=== PATIENT | female | born 1970 | race Caucasian/White ===

== ENCOUNTER 2017-05-21 09:06 | Emergency (ER) | payer MEDICARE ==
[~2017-05-21] VITALS: Ht 175.3 cm; Wt 86.2 kg
[~2017-05-21 09:06] MED LIST: ACEBUTCAFT PO; CLON1 PO; CYCL10 PO; DIVA125EC PO; DIVA500ER PO; DOXY100T53 PO; FLUO20; HYDACE5 PO; LAMO100 PO; LITH300C PO; LITH300ER PO; META800 PO; NAPR500 PO; OLAN10 PO; OXYACE5T PO; PARO20 PO; QUET100; QUET25; QUET25 PO; RXCYCL10 PO; RXHYDACE PO; TOPI100; TOPI100 PO; ZOLP10 PO
[2017-05-21] MEDS ORDERED: MONDOXYNE NL100 MG PO (10:03)
[2017-05-21 11:05] LABS: Candida species (DNA Probe) Negative (NEGATIVE); G. vaginalis (DNA Probe) Positive (NEGATIVE); T. vaginalis (DNA Probe) Negative (NEGATIVE)
[2017-12-27] MEDS ORDERED: Augmentin 875-1 EACH PO (12:08)
== END 2017-05-21 10:19 | disposition home or self-care (01) ==
LOC: ER 09:06
PROVIDERS: Physician Assistant
DX: T19.2XXA Foreign body in vulva and vagina, initial encounter (principal); Z88.8 Allergy status to other drugs, medicaments and biological substances; Z88.5 Allergy status to narcotic agent; Z79.899 Other long term (current) drug therapy; F17.200 Nicotine dependence, unspecified, uncomplicated
CPT/HCPCS: 87070; 87205; 87480; 87510; 87660; 99284

== ENCOUNTER 2017-10-05 19:21 | Emergency (ER) | payer MEDICARE ==
[~2017-10-05] VITALS: Ht 177.8 cm; Wt 78.0 kg
[~2017-10-05 19:21] MED LIST changes: +MONDOXYNE NL100 MG PO
[2017-10-05] MEDS ORDERED: DIVA500EC PO (20:18)
[2017-10-05] MEDS ORDERED: CYCL10 PO (22:01)
[2017-10-05] MEDS ORDERED: Prednisone20 MG PO (22:01)
[2017-10-05] MEDS ORDERED: Percocet 5-3251 EACH PO (22:01)
== END 2017-10-05 23:02 | disposition home or self-care (01) ==
LOC: ER 19:21
DX: M54.41 Lumbago with sciatica, right side (principal); G58.8 Other specified mononeuropathies; Z88.8 Allergy status to other drugs, medicaments and biological substances; Z79.899 Other long term (current) drug therapy; Z79.2 Long term (current) use of antibiotics; F17.200 Nicotine dependence, unspecified, uncomplicated
CPT/HCPCS: 73502; 96374; 96375; 96376; 99283-25; J1100; J1885; J3010

== ENCOUNTER 2018-12-11 23:06 | Emergency (ER) | payer MEDICARE ==
[~2018-12-11] VITALS: Ht 175.3 cm; Wt 79.4 kg
[~2018-12-11 23:06] MED LIST changes: +Augmentin 875-1 EACH PO; +DIVA500EC PO; +Percocet 5-3251 EACH PO; +Prednisone20 MG PO
[2018-12-12 00:15] LABS: Source, Urine Clean Catch
[2018-12-12 00:20] LABS: BASOPHILS ABSOLUTE AUTO 0.07 K/mm3 (0.00-0.23); BASOPHILS PERCENT AUTO 1 % (0-2); EOSINOPHILS PERCENT AUTO 2 % (0-6); Hematocrit 36.3 % (33.0-51.0); Hemoglobin 11.9 g/dL (11.5-16.0); IMMATURE GRAN ABSOLUTE AUTO 0.03 K/mm3 (0.00-0.10); IMMATURE GRAN PERCENT AUTO 0 % (0-1); LYMPHOCYTES ABSOLUTE AUTO 1.46 K/mm3 (0.84-5.20); LYMPHOCYTES PERCENT AUTO 16 % (21-46); MONOCYTES ABSOLUTE AUTO 0.74 K/mm3 (0.16-1.47); MONOCYTES PERCENT AUTO 8 % (4-13); Mean Corpuscular HGB 29.3 pg (26.0-34.0); Mean Corpuscular HGB Conc 32.8 g/dL (31.5-36.5); Mean Corpuscular Volume 89 fL (80-100); NEUTROPHILS ABSOLUTE AUTO 6.62 K/mm3 (1.96-9.15); NEUTROPHILS PERCENT AUTO 73 % (41-73); Platelet Count 281 K/mm3 (150-400); RDW Coefficient Variation 13.2 % (11.7-14.2); RDW Standard Deviation 43.3 fL (35.1-46.3); Red Blood Cell Count 4.06 M/mm3 (3.80-5.20); White Blood Cell Count 9.12 K/mm3 (4.00-11.30)
[2018-12-12 00:22] LABS: Bilirubin, Urine Neg (Neg); Blood, Urine 4+ (Neg); Glucose Qualitative, Urine Neg (Neg); Ketones, Urine Neg (Neg); Leukocyte Esterase, Urine 3+ (Neg); Nitrite, Urine Neg (Neg); Protein, Urine 2+ (Neg); Specific Gravity, Urine 1.015 (1.003-1.022); Urobilinogen, Urine NORM (Normal)
[2018-12-12 00:24] LABS: Appearance, Urine Hazy (Clear); Color, Urine Yellow (P-Yellow)
[2018-12-12 00:31] LABS: Bacteria Many /hpf; Squamous Epithelial Cells Mod /hpf (Few); White Blood Cells, Urine TNTC /hpf (0-5)
[2018-12-12 00:45] LABS: Alanine Aminotransfer (ALT/SGP 28 U/L (12-78); Albumin, Blood 3.2 g/dL (3.4-5.0); Albumin/Globulin Ratio 0.8 (0.8-1.8); Alk Phos 143 U/L (50-136); Anion Gap 6 mmol/L (6-16); Aspartate Aminotrans (AST/SGOT 20 U/L (12-37); Bilirubin, Total 0.3 mg/dL (0.1-1.0); Blood Urea Nitrogen 12 mg/dL (8-24); Bun/Creatinine Ratio 14.2 (12.0-20.0); CO2, Blood 27 mmol/L (21-32); Calcium, Blood 8.3 mg/dL (8.5-10.1); Chloride, Blood 104 mmol/L (98-108); Creatinine, Blood 0.85 mg/dL (0.40-1.00); Globulin, Blood 4.1 g/dL (2.2-4.0); Glomerular Filtration Rate >60 (60-); Glucose, Blood 86 mg/dL (70-99); Sodium, Blood 137 mmol/L (136-145); Total Protein, Blood 7.3 g/dL (6.4-8.2)
[2018-12-12] MEDS ORDERED: Doxycycline Hy100 MG PO (03:39)
== END 2018-12-12 04:00 | disposition home or self-care (01) ==
LOC: ER 23:06
PROVIDERS: Emergency Medicine
DX: N39.0 Urinary tract infection, site not specified (principal); R45.4 Irritability and anger; K08.89 Other specified disorders of teeth and supporting structures; Z72.51 High risk heterosexual behavior; Z87.891 Personal history of nicotine dependence; Z88.5 Allergy status to narcotic agent; Z88.8 Allergy status to other drugs, medicaments and biological substances; Z79.899 Other long term (current) drug therapy
CPT/HCPCS: 36415; 80053; 81001; 83690; 85025; 87077; 87086; 87186; 96372; 99284-25; A9270-GY; J0696

== ENCOUNTER 2019-01-14 11:21 | Emergency (ER) | payer MEDICARE ==
[~2019-01-14] VITALS: Ht 175.3 cm; Wt 72.6 kg
[~2019-01-14 11:21] MED LIST changes: +Doxycycline Hy100 MG PO
[2019-01-14] MEDS ORDERED: Amoxicillin500 MG PO (11:56)
== END 2019-01-14 12:00 | disposition home or self-care (01) ==
LOC: ER 11:21
DX: K04.7 Periapical abscess without sinus (principal); K02.9 Dental caries, unspecified; Z87.891 Personal history of nicotine dependence; Z88.5 Allergy status to narcotic agent; Z88.8 Allergy status to other drugs, medicaments and biological substances; Z79.899 Other long term (current) drug therapy
CPT/HCPCS: 99282

== ENCOUNTER → 2019-03-01 | Outpatient (CLI) | payer OTHER ==
[~2019-03-01] MED LIST changes: +Amoxicillin500 MG PO; +RALT400 PO; +Truvada Tablet1 EACH PO
== END ==
LOC: LAB 17:22 → LAB SHORT 17:22
DX: N76.0 Acute vaginitis (principal)
CPT/HCPCS: 87070; 87147; 87205

== ENCOUNTER 2019-10-06 06:47 | Emergency (ER) | payer MEDICARE ==
[~2019-10-06] VITALS: Ht 175.3 cm; Wt 77.1 kg
[2019-10-06] MEDS ORDERED: Depakote500 MG PO (07:24)
[2019-10-06] MEDS ORDERED: ZOVIRAX800 MG PO (07:44)
== END 2019-10-06 08:33 | disposition home or self-care (01) ==
LOC: ER 06:47
DX: B02.9 Zoster without complications (principal); F43.10 Post-traumatic stress disorder, unspecified; Z79.899 Other long term (current) drug therapy; Z88.5 Allergy status to narcotic agent; Z88.8 Allergy status to other drugs, medicaments and biological substances; Z87.891 Personal history of nicotine dependence
CPT/HCPCS: 99282

== ENCOUNTER 2020-03-18 07:30 | Emergency (ER) | payer MEDICARE ==
[~2020-03-18] VITALS: Ht 177.8 cm; Wt 77.1 kg
[~2020-03-18 07:30] MED LIST changes: +Depakote500 MG PO; +ZOVIRAX800 MG PO
[2020-03-18] MEDS ORDERED: CODACE30 PO ×2 (09:28→11:03)
== END 2020-03-18 11:31 | disposition home or self-care (01) ==
LOC: ER 07:30
DX: S62.622A Displaced fracture of middle phalanx of right middle finger, initial encounter for closed fracture (principal); S00.83XA Contusion of other part of head, initial encounter; Z88.8 Allergy status to other drugs, medicaments and biological substances; Z79.899 Other long term (current) drug therapy; Z87.891 Personal history of nicotine dependence; Y04.8XXA Assault by other bodily force, initial encounter
CPT/HCPCS: 29130; 70450; 70486; 72125; 73130; 73502; 99284-25

== ENCOUNTER 2020-03-26 05:56 | Emergency (ER) | payer MEDICARE ==
[~2020-03-26] VITALS: Ht 177.8 cm; Wt 81.7 kg
[~2020-03-26 05:56] MED LIST changes: +CODACE30 PO
[2020-03-26] MEDS ORDERED: FAMC500 PO (06:24)
[2020-03-26] MEDS ORDERED: IBUP400 PO (06:24)
== END 2020-03-26 07:00 | disposition home or self-care (01) ==
LOC: ER 05:56
DX: M54.42 Lumbago with sciatica, left side (principal); F17.210 Nicotine dependence, cigarettes, uncomplicated; Z88.8 Allergy status to other drugs, medicaments and biological substances
CPT/HCPCS: 96372; 99283; A9270; J1100

== ENCOUNTER → 2020-12-01 | Outpatient (CLI) | payer SELFPAY ==
[~2020-12-01] MED LIST changes: +FAMC500 PO; +IBUP400 PO
[2020-12-01 11:58] LABS: BASOPHILS ABSOLUTE AUTO 0.02 K/mm3 (0.00-0.23); BASOPHILS PERCENT AUTO 0 % (0-2); EOSINOPHILS ABSOLUTE AUTO 0.03 K/mm3 (0.00-0.68); EOSINOPHILS PERCENT AUTO 0 % (0-6); Hemoglobin 12.2 g/dL (11.5-16.0); IMMATURE GRAN ABSOLUTE AUTO 0.04 K/mm3 (0.00-0.10); IMMATURE GRAN PERCENT AUTO 0 % (0-1); LYMPHOCYTES ABSOLUTE AUTO 1.03 K/mm3 (0.84-5.20); LYMPHOCYTES PERCENT AUTO 9 % (21-46); MONOCYTES ABSOLUTE AUTO 0.87 K/mm3 (0.16-1.47); MONOCYTES PERCENT AUTO 8 % (4-13); Mean Corpuscular HGB 29.4 pg (26.0-34.0); Mean Corpuscular HGB Conc 34.9 g/dL (31.5-36.5); Mean Corpuscular Volume 84 fL (80-100); Mean Platelet Volume 9.8 fL (9.1-12.4); NEUTROPHILS ABSOLUTE AUTO 9.48 K/mm3 (1.96-9.15); NEUTROPHILS PERCENT AUTO 83 % (41-73); Platelet Count 218 K/mm3 (150-400); RDW Coefficient Variation 13.5 % (11.7-14.2); Red Blood Cell Count 4.15 M/mm3 (3.80-5.20); White Blood Cell Count 11.47 K/mm3 (4.00-11.30)
[2020-12-01 13:26] LABS: Anion Gap 9 mmol/L (6-16); Blood Urea Nitrogen 15 mg/dL (8-24); Bun/Creatinine Ratio 15.8 (12.0-20.0); CO2, Blood 28 mmol/L (21-32); Calcium, Blood 8.8 mg/dL (8.5-10.1); Chloride, Blood 100 mmol/L (98-108); Creatinine, Blood 0.95 mg/dL (0.40-1.00); Glomerular Filtration Rate >60 (60-); Glucose, Blood 113 mg/dL (70-99); Sodium, Blood 137 mmol/L (136-145)
== END | disposition home or self-care (01) ==
LOC: LAB SHORT 11:41
PROVIDERS: Physician Assistant Surgical
DX: R00.0 Tachycardia, unspecified (principal); R31.9 Hematuria, unspecified
CPT/HCPCS: 80048; 85025; 85379; 87077; 87086; 87147; 87186

== ENCOUNTER 2020-12-02 02:33 | Emergency (ER) | payer MEDICARE ==
[~2020-12-02] VITALS: Ht 177.8 cm; Wt 83.5 kg
== END 2020-12-02 03:00 | disposition left against medical advice (07) ==
LOC: ER 02:33
DX: J18.9 Pneumonia, unspecified organism (principal); F91.8 Other conduct disorders; F17.210 Nicotine dependence, cigarettes, uncomplicated; Z88.8 Allergy status to other drugs, medicaments and biological substances; Z79.899 Other long term (current) drug therapy
CPT/HCPCS: 93005; 93010

== ENCOUNTER 2021-03-18 09:20 | Emergency (ER) | payer MEDICARE ==
[~2021-03-18] VITALS: Ht 177.8 cm; Wt 83.9 kg
[2021-03-18] MEDS ORDERED: VALACYCLOVIR1000 MG PO (09:50)
== END 2021-03-18 10:41 | disposition home or self-care (01) ==
LOC: ER 09:20
DX: B02.8 Zoster with other complications (principal); Z88.8 Allergy status to other drugs, medicaments and biological substances; Z88.5 Allergy status to narcotic agent; Z88.1 Allergy status to other antibiotic agents; Z87.891 Personal history of nicotine dependence
CPT/HCPCS: 96372; 99283-25; A9270; J3301

== ENCOUNTER 2021-08-27 20:51 | Emergency (ER) | payer MEDICARE ==
[~2021-08-27] VITALS: Ht 177.8 cm; Wt 83.0 kg
[~2021-08-27 20:51] MED LIST changes: +VALACYCLOVIR1000 MG PO
== END 2021-08-28 00:45 | disposition left against medical advice (07) ==
LOC: ER 20:51
DX: R51.9 Headache, unspecified (principal); M54.2 Cervicalgia; H53.8 Other visual disturbances; Z53.21 Procedure and treatment not carried out due to patient leaving prior to being seen by health care provider
CPT/HCPCS: 99281